=== PATIENT | male | born 1975 | race American Indian/Alaskan Native ===

== ENCOUNTER 2020-05-02 11:32 | Outpatient (CLI) | payer BC ==
[2020-05-02 13:13] LABS: Basophils % (Auto) 0.5 % (0.0-1.8); Eosinophils # (Auto) 0.1 K/mm3 (0.0-0.4); Eosinophils % (Auto) 1.4 % (0.0-4.3); Hematocrit 41.9 % (35.5-45.6); Hemoglobin 13.6 gm/dl (11.8-15.2); Lymphocytes # (Auto) 1.7 K/mm3 (1.2-5.4); Lymphocytes % (Auto) 25.9 % (13.4-35.0); Mean Corpuscular HGB Conc 32 % (32-34); Mean Corpuscular Volume 87 fl (84-94); Monocytes # (Auto) 0.4 K/mm3 (0.0-0.8); Monocytes % (Auto) 6.7 % (0.0-7.3); Platelet Count 232 K/mm3 (140-440); Red Cell Distribution Width 14.9 % (13.2-15.2)
[2020-05-02 13:32] LABS: Alanine Aminotransferase 16 units/L (7-56); BUN/Creatinine Ratio 14; Blood Urea Nitrogen 11 mg/dL (9-20); Calcium 9.4 mg/dL (8.4-10.2); Hemolysis Index 2; Iron 81 ug/dL (49-181); Total Iron Binding Capacity 271 mcg/dL (250-450)
== END 2020-05-02 11:33 | disposition home or self-care (01) ==
LOC: LAB 11:32
PROVIDERS: ATTEND Surgery
DX: Z01.812 Encounter for preprocedural laboratory examination (principal); E66.01 Morbid (severe) obesity due to excess calories; K30 Functional dyspepsia; E11.9 Type 2 diabetes mellitus without complications
CPT/HCPCS: 36415; 80053; 82607; 82652; 82728; 83036; 83550; 84443; 85025

== ENCOUNTER 2020-05-30 07:36 | Outpatient (CLI) | payer BC ==
--- NOTE | 2020-05-30 10:03 | Fluoroscopy Report ---
UPPER GI HISTORY: FUNCTIONAL DYSPEPSIA. TECHNIQUE: Single and double contrast barium technique utilized to evaluate the esophagus, stomach, and duodenal C-loop. FINDINGS: To begin the exam, swallowing was evaluated in the lateral position under direct fluorosco py. Swallowing was normal. No mucosal irregularity, mass, mass effect, or critical stenosis. There were no abnormal tertiary c ontractions as seen with dysmotility. No gastroesophageal reflux. IMPRESSION: Unremarkable exam. Fluoroscopic time: 1.9 minutes Number of fluoroscopic images: 20 Signer Name: Uziel Caicedo Jr, MD Signed: 05/30/2020 9:58 AM Workstation Name: [id number]
== END 2020-05-30 07:37 | disposition home or self-care (01) ==
LOC: FLUORO 07:36
PROVIDERS: ATTEND Surgery
DX: K30 Functional dyspepsia (principal)
CPT/HCPCS: 74246

== ENCOUNTER 2020-06-07 06:49 | Day surgery (SDC) | payer BC ==
[~2020-06-07 06:49] MED LIST: SODIUM CHLORIDE 0.9% 1000 ML 1,000 ML IV SCH
[2020-06-07] MEDS ORDERED: SODIUM CHLORIDE 0.9% 1000 ML 1,000 ML IV SCH (07:00)
--- NOTE | 2020-06-07 07:38 | Anesthesia Consultation ---
Anesthesia Consult and Med Hx Date of service: 06/07/20 - Airway Anesthetic Teeth Evaluation: Good ROM Head & Neck: Adequate Mental/Hyoid Distance: Adequate Mallampati Class: Class III Intubation Access Assessment: Possibly Difficult - Pre-Operative Health Status ASA Pre-Surgery Classification: ASA3 Proposed Anesthetic Plan: MAC - Pulmonary Hx Sleep Apnea: Yes (uses CPAP) - Cardiovascular System Hx Hypertension: Yes - Gastrointestinal Hx Gastroesophageal Reflux Disease: Yes - Endocrine Hx Non-Insulin Dependent Diabetes: Yes - Other Systems Hx Obesity: Yes (Morbid obesity, BMI 53)
--- NOTE | 2020-06-07 07:38 | Anesthesia Day of Surgery ---
Anesthesia Day of Surgery - Day of Surgery Patient Examined: Yes Patient H&P Reviewed: Yes Patient is NPO: Yes
[2020-06-07] MEDS ORDERED: propofoL 200 MG/20 ML VIAL IV ONE (08:50)
--- NOTE | 2020-06-07 09:19 | Discharge Summary ---
Providers - Providers Date of Admission: 06/07/20 Date of discharge: 06/07/20 Attending physician: LIZA MILLER MD Primary care physician: MAYCO CERON MD Hospitalization Reason for admission: EGD as part of pre-op planning for bariatric surgery Condition: Good Procedures: EGD with bx Hospital course: Pt presented for a pre-op EGD as part of planning for up coming bariatric surgery. Procedure was uneventful and pt recovered well and was discharged to home. Disposition: - TO HOME OR SELFCARE Core Measure Documentation - Palliative Care Palliative Care/ Comfort Measures: Not Applicable - Core Measures Any of the following diagnoses?: none Exam - Physical Exam Narrative exam: unchanged from pre-op - Constitutional Vitals: Temp Pulse Resp BP Pulse Ox 98.5 F 69 15 114/66 98 06/07/20 07:55 06/07/20 07:55 06/07/20 07:55 06/07/20 07:55 06/07/20 07:55 Plan Activity: advance as tolerated Diet: low carbohydrate Follow up with: MAYCO CERON MD [Primary Care Provider] - 7 Days
--- NOTE | 2020-06-07 09:22 | Operative Report ---
Operative Report Operative Report: DATE: 06/07/20 SURGEON: Jesi Smith M.D. PROCEDURE: EGD with biopsy PRE OP DX: morbid obesity, GERD POST OP DX: morbid obesity, GERD TYPE OF ANESTHESIA: MAC. ESTIMATED BLOOD LOSS: None. COMPLICATIONS: None. SPECIMENS REMOVED: antral biopsy FINDINGS: 1. Small hiatal hernia. 2. Normal esophagus, stomach and first portion of duodenum. INDICATIONS:INDICATION FOR PROCEDURE: Patient is a 44-year-old male with a long history of morbid obesity. He is planned to have a weight loss procedure and is here for preoperative planning EGD. PROCEDURE DETAILS: After consent was reviewed, patient was taken back to the operating room where patient was placed in the left lateral decubitus position and a bite block was placed in the mouth. After a time-out was called, MAC anesthesia was initiated. I then passed the endoscope into his oropharynx, into his esophagus, visualized the entire esophagus, which was all within normal limits. Z-line was noted to about 40cm from incisors. I then visualized the stomach and the first portion of the duodenum and there were no abnormalities I could clearly visualize with the exception of mild gastritis. A cold forceps biopsy of the antrum was taken and will be sent to pathology to evaluate for H.pylori. I then retroflexed the scope in the stomach and visualized the hiatus and I could see a small hiatal hernia. I then desufflated the stomach and removed the endoscope. Patient tolerated procedure well and was transferred to recovery room in good and stable condition.
[2020-06-07 10:00] VITALS: BP 114/59
--- NOTE | 2020-06-07 10:30 | Post Anesthesia Evaluation ---
- Post Anesthesia Evaluation Patient Participated: Yes Airway Patent: Yes Stable Respiratory Function: Yes Nausea/Vomiting: No Temp > 96.8F: Yes Pain Manageable: Yes Adequeate Hydration: Yes Anesthesia Complications: No
== END 2020-06-07 06:50 | disposition home or self-care (01) ==
LOC: GIO 06:49
PROVIDERS: ATTEND Surgery
DX: K21.9 Gastro-esophageal reflux disease without esophagitis (principal); E66.01 Morbid (severe) obesity due to excess calories; K44.9 Diaphragmatic hernia without obstruction or gangrene; K31.89 Other diseases of stomach and duodenum; I10 Essential (primary) hypertension; E11.9 Type 2 diabetes mellitus without complications; G47.30 Sleep apnea, unspecified; Z68.31 Body mass index [BMI] 31.0-31.9, adult; Z79.84 Long term (current) use of oral hypoglycemic drugs
CPT/HCPCS: 43239; 88305; 88342; J2704; J7030